=== PATIENT | female | born 1970 | race Caucasian/White ===

== ENCOUNTER → 2018-01-05 | Outpatient (CLI) | payer OTHER | END | disposition home or self-care (01) | LOC: CFH 09:56 | PROVIDERS: ATTEND Family Medicine | DX: M54.5 Low back pain (principal); M54.6 Pain in thoracic spine | CPT/HCPCS: 72072; 72110 ==

== ENCOUNTER 2019-04-17 10:00 | Day surgery (SDC) | payer OTHER ==
[~2019-04-17] VITALS: Ht 154.9 cm; Wt 78.3 kg
[~2019-04-17 10:00] MED LIST: ATOR20TA37 PO; FLUT9.9S NAS
[2019-04-17] MEDS ORDERED: LACTATED RINGERS 1,000 ML IV SCH (15:57)
[2019-04-17] MEDS ORDERED: GABAPENTIN 300 MG CAPSULE PO ONE (16:00)
[2019-04-17] MEDS ORDERED: ACETAMINOPHEN 500 MG TABLET PO ONE (16:00)
[2019-04-17] MEDS ORDERED: SCOPOLAMINE PATCH, 1.5MG PATCH.TD72 TD ONE (16:00)
[2019-04-17 16:02] VITALS: BP 113/77
[2019-04-17 16:46] LABS: HCG UR SG 1.023 (1.003-1.030)
[2019-04-17] MEDS ORDERED: MIDAZOLAM 1 MG/ML, 2ML ONE (17:21)
[2019-04-17] MEDS ORDERED: FENTANYL PF 100 MCG/2ML ONE (17:21)
[2019-04-17] MEDS ORDERED: BUPIVACAINE/PF 0.25% ONE (17:26)
[2019-04-17] MEDS ORDERED: EPINEPHRINE 1 MG/ML, 1ML ONE (17:27)
[2019-04-17] MEDS ORDERED: LIDOCAINE-MPF 2% ,5ML ONE (17:53)
[2019-04-17] MEDS ORDERED: KETOROLAC 30 MG/1 ML ONE (17:53)
[2019-04-17] MEDS ORDERED: PROPOFOL 10 MG/ML, 20ML ONE (18:19)
[2019-04-17] MEDS ORDERED: ONDANSETRON 2MG/ML, 2ML ONE (18:19)
[2019-04-17] MEDS ORDERED: DEXAMETHASONE 4 MG/ML, 1ML ONE (18:19)
[2019-04-17] MEDS ORDERED: ALBUTEROL/IPRATROPIUM 2.5MG/0.5MG, 3 ML NPPB PRN (18:30)
[2019-04-17] MEDS ORDERED: hydrALAzine 20 MG/ML, 1ML IV PRN (18:30)
[2019-04-17] MEDS ORDERED: METOPROLOL 1 MG/ML, 5ML IV PRN (18:30)
[2019-04-17] MEDS ORDERED: MEPERIDINE/PF 25MG/ML,1ML IVPush PRN (18:30)
[2019-04-17] MEDS ORDERED: OXYcodone 5 MG/5 ML ORAL.SOL UDC PO PRN (18:30)
[2019-04-17] MEDS ORDERED: PROMETHAZINE 25 MG/ML, 1ML IV PRN (18:30)
[2019-04-17] MEDS ORDERED: FENTANYL PF 100 MCG/2ML IV PRN (18:30)
[2019-04-17] MEDS ORDERED: MIDAZOLAM 1 MG/ML, 2ML IV PRN (18:30)
== END 2019-04-17 20:45 | disposition home or self-care (01) ==
LOC: OUT 10:00
PROVIDERS: ATTEND Obstetrics & Gynecology
DX: N92.0 Excessive and frequent menstruation with regular cycle (principal); N94.6 Dysmenorrhea, unspecified; N84.0 Polyp of corpus uteri; E78.5 Hyperlipidemia, unspecified; E66.9 Obesity, unspecified; Z90.49 Acquired absence of other specified parts of digestive tract; Z98.890 Other specified postprocedural states; Z79.899 Other long term (current) drug therapy
CPT/HCPCS: 58558; 81025; 88305; J0171; J1100; J1885; J2250; J2405; J2704; J3010; J3490; J7120

== ENCOUNTER 2020-05-12 19:17 | Emergency (ER) | payer OTHER ==
[~2020-05-12] VITALS: Ht 154.9 cm; Wt 78.4 kg
[2020-05-12 19:21] VITALS: BP 146/107
[2020-05-12] MEDS ORDERED: LIDOCAINE-MPF 1%, 5ML INFIL ONE (19:30)
[2020-05-12] MEDS ORDERED: DIPH,PERTUSS(ACELL),TET VAC/PF 0.5 ML IM-VACC ONE ×2 (19:30→22:04)
[2020-05-12] MEDS ORDERED: LIDOCAINE-MPF 2% ,5ML ONE (21:15)
== END 2020-05-12 22:29 | disposition home or self-care (01) ==
LOC: ED 21:35
DX: S61.412A Laceration without foreign body of left hand, initial encounter (principal); W26.9XXA Contact with unspecified sharp object(s), initial encounter; Y93.89 Activity, other specified; Y92.009 Unspecified place in unspecified non-institutional (private) residence as the place of occurrence of the external cause; Y99.8 Other external cause status
CPT/HCPCS: 12041; 12042; 90471; 90715; 99285

== ENCOUNTER 2020-05-27 05:41 | Day surgery (SDC) | payer OTHER ==
[~2020-05-27] VITALS: Ht 154.9 cm; Wt 76.0 kg
[2020-05-27] MEDS ORDERED: BUPIVACAINE/PF 0.5% ONE (06:13)
[2020-05-27] MEDS ORDERED: BUPIVACAINE/PF 0.25% ONE (06:14)
[2020-05-27] MEDS ORDERED: EPINEPHRINE 1 MG/ML, 1ML ONE (06:14)
[2020-05-27] MEDS ORDERED: LACTATED RINGERS 1,000 ML IV SCH (06:30)
[2020-05-27] MEDS ORDERED: CHLORHEXIDINE 15 ML UDC MM ONE (06:30)
[2020-05-27] MEDS ORDERED: LIDOCAINE-MPF 1%, 2ML INFIL ONE (06:30)
[2020-05-27 06:37] VITALS: BP 145/88
[2020-05-27 06:37] LABS: HCG UR SG 1.015 (1.003-1.030)
[2020-05-27] MEDS ORDERED: NORE-213 PO (06:37)
[2020-05-27] MEDS ORDERED: AMLO-150 PO (06:37)
[2020-05-27] MEDS ORDERED: FENTANYL PF 100 MCG/2ML ONE ×2 (06:42→08:13)
[2020-05-27] MEDS ORDERED: MIDAZOLAM 1 MG/ML, 2ML ONE (06:42)
[2020-05-27] MEDS ORDERED: DEXAMETHASONE 4 MG/ML, 1ML ONE (06:59)
[2020-05-27] MEDS ORDERED: FENTANYL PF 100 MCG/2ML IV PRN (07:00)
[2020-05-27] MEDS ORDERED: PROMETHAZINE 25 MG/ML, 1ML IVPush PRN (07:00)
[2020-05-27] MEDS ORDERED: HYDROcodone/APAP 7.5-325MG/15ML UDC PO PRN (07:00)
[2020-05-27] MEDS ORDERED: OXYcodone 5 MG/5 ML ORAL.SOL UDC PO PRN (07:00)
[2020-05-27] MEDS ORDERED: HYDROmorphone 1 MG/ML, 1ML INJ IVPush PRN (07:00)
[2020-05-27] MEDS ORDERED: KETOROLAC 30 MG/1 ML IVPush PRN (07:00)
[2020-05-27] MEDS ORDERED: ONDANSETRON 2MG/ML, 2ML ONE (07:22)
[2020-05-27] MEDS ORDERED: CEFAZOLIN 1,000 MG ONE (07:22)
[2020-05-27] MEDS ORDERED: PROPOFOL 10 MG/ML, 20ML ONE (07:22)
[2020-05-27] MEDS ORDERED: HYDROcodone/APAP 7.5-325MG/15ML UDC ONE (08:20)
== END 2020-05-27 09:35 | disposition home or self-care (01) ==
LOC: OUT 05:41
PROVIDERS: ATTEND Orthopaedic Surgery Hand Surgery
DX: S61.012A Laceration without foreign body of left thumb without damage to nail, initial encounter (principal); I10 Essential (primary) hypertension; E78.00 Pure hypercholesterolemia, unspecified; Z20.828 Contact with and (suspected) exposure to other viral communicable diseases; Z79.899 Other long term (current) drug therapy; W26.0XXA Contact with knife, initial encounter; W01.118A Fall on same level from slipping, tripping and stumbling with subsequent striking against other sharp object, initial encounter; Y93.89 Activity, other specified; Y92.89 Other specified places as the place of occurrence of the external cause; Y99.8 Other external cause status
CPT/HCPCS: 20103; 81025; J0690; J1100; J2250; J2405; J2704; J3010; J7120; U0003; J0171

== ENCOUNTER → 2020-11-11 | Outpatient (CLI) | payer OTHER ==
[~2020-11-11] MED LIST changes: +AMLO-150 PO; +NORE-213 PO
== END | disposition home or self-care (01) ==
LOC: RAD 08:11
PROVIDERS: ATTEND Family Medicine
DX: M19.032 Primary osteoarthritis, left wrist (principal)